=== PATIENT | female | born 1980 ===

== ENCOUNTER 2017-06-27 16:54 | Emergency (ER) | payer OTHER ==
[~2017-06-27] VITALS: Ht 167.6 cm; Wt 111.4 kg
[2017-06-27] MEDS ORDERED: ALBU8HFA IH (17:23)
[2017-06-27 19:03] LABS: APPEARANCE,URINE CLEAR (CLEAR); BILIRUBIN,URINE NEGATIVE (NEGATIVE); GLUCOSE, URINE (UA) NEGATIVE (NEGATIVE); KETONES,URINE NEGATIVE (NEGATIVE); LEUKOCYTE ESTERASE ,URINE NEGATIVE (NEGATIVE); NITRATE,URINE NEGATIVE (NEGATIVE); OCCULT BLOOD,URINE NEGATIVE (NEGATIVE); PH,URINE 7.5 (5.0-8.0); PROTEIN,URINE NEGATIVE (NEGATIVE); UROBILINOGEN,URINE 0.2 mg/dL (<=1.0)
[2017-06-27] MEDS ORDERED: KETOROLAC TROMETHAMINE 60 MG/2 ML VIAL IM ONE (19:30)
[2017-06-27 20:05] VITALS: BP 123/80
[2017-06-27] MEDS ORDERED: METHOCARBAMOL 500 MG TABLET PO ONE (20:15)
== END 2017-06-27 20:24 | disposition home or self-care (01) ==
LOC: EMS 16:58
DX: M54.5 Low back pain (principal); J45.909 Unspecified asthma, uncomplicated; F17.210 Nicotine dependence, cigarettes, uncomplicated; Z88.0 Allergy status to penicillin
CPT/HCPCS: 81003; 81025; 96372; 99283; 99406; J1885

== ENCOUNTER 2017-12-14 16:32 | Emergency (ER) | payer OTHER ==
[~2017-12-14] VITALS: Ht 167.6 cm; Wt 127.3 kg
[~2017-12-14 16:32] MED LIST: ALBU8HFA IH
[2017-12-14] MEDS ORDERED: KETOROLAC TROMETHAMINE 10 MG TABLET PO ONE (18:45)
[2017-12-14 20:35] VITALS: BP 127/63
== END 2017-12-14 20:42 | disposition home or self-care (01) ==
LOC: EMS 16:32
DX: R30.0 Dysuria (principal); R10.9 Unspecified abdominal pain; J45.909 Unspecified asthma, uncomplicated; F17.210 Nicotine dependence, cigarettes, uncomplicated; Z88.0 Allergy status to penicillin
CPT/HCPCS: 74176; 99284